=== PATIENT | male | born 1960 | race Caucasian/White ===

== ENCOUNTER 2021-04-04 00:07 | Emergency (ER) | payer SELFPAY ==
[~2021-04-04] VITALS: Ht 180.3 cm; Wt 117.2 kg
[~2021-04-04 00:07] MED LIST: ASPIR-LOW81 MG PO; ASPIRIN EC325 MG PO; BYSTOLIC20 MG PO; BYSTOLIC5 MG PO; LISINOPRIL10 MG PO; LISINOPRIL5 MG PO; NICORETTE2 MG MM; NORCO 7.5-3251 EACH PO; PANTOPRAZOLE SO40 MG PO; PRAVASTATIN SOD40 MG PO; PREVACID15 MG PO
--- NOTE | 2021-04-04 20:21 | EKG ---
[facility] [address] [facility] [place], [place] [address] Signed Normal sinus rhythm Normal ECG When compared with ECG of 05-JUN-2016 06:22, No significant change was found Confirmed by TESHA DOBSON DO ([id number]) on 04/04/2021 8:21:40 PM Electronically Signed By: TESHA DOBSON DO 04/04/212020 PATIENT NAME: DA BOLAÑOS Electrocardiogram DATE OF : 56 PHYSICIAN: TESHA DOBSON DO REPORT #: [id number] REPORT IS CONFIDENTIAL AND NOT TO BE RELEASED WITHOUT AUTHORIZATION
== END 2021-04-04 01:26 | disposition home or self-care (01) ==
LOC: ED 00:07
DX: J06.9 Acute upper respiratory infection, unspecified (principal); Z20.822 Contact with and (suspected) exposure to COVID-19; I10 Essential (primary) hypertension
CPT/HCPCS: 71045; 80053; 83735; 83880; 84484; 85025; 93005; 93010; 99285-25; C9803; U0003

== ENCOUNTER 2022-03-26 21:28 | Emergency (ER) | payer OTHER ==
[~2022-03-26] VITALS: Ht 180.3 cm; Wt 122.0 kg
[~2022-03-26 21:28] MED LIST changes: +LASIX20 MG PO; +POTASSIUM CHLO10 ME2 PO
--- OUTSIDE RECORDS SUMMARY | 2022-03-26 21:36 | XMS ---
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 [facility] VISIT COUNT (12 MO.) 3 [facility] TOTAL 3 NOTE: Visits indicate total known visits. ED/UCC VISIT TRACKING (12 MO.) 03/26/2022 21:29 [facility] TYPE: Emergency COMPLAINT: - LEG PAIN 03/20/2022 12:53 [facility] TYPE: Emergency COMPLAINT: - WATER RETENTION, SOB 04/04/2021 00:07 [facility] TYPE: Emergency COMPLAINT: - SOB DIAGNOSES: - Acute upper respiratory infection, unspecified - Shortness of breath - Essential (primary) hypertension INPATIENT VISIT TRACKING (12 MO.) 03/20/2022 12:54 [facility] TYPE: Observation COMPLAINT: - CHF, LIKELY ACUTE DIASTOLIC DIAGNOSES: - Atherosclerotic heart disease of [place] coronary artery without angina pectoris - Heart failure, unspecified - Contact with and (suspected) exposure to COVID-19 - Hypertensive heart disease with heart failure [email or web address]
== END 2022-03-27 02:50 | disposition home or self-care (01) ==
LOC: ED 21:28
DX: I71.019 Dissection of thoracic aorta, unspecified (principal); I11.0 Hypertensive heart disease with heart failure; I50.9 Heart failure, unspecified; Z79.899 Other long term (current) drug therapy
CPT/HCPCS: 36415; 75635; 80053; 85025; 85610; 99284-25; Q9967

== ENCOUNTER 2023-06-01 22:31 | Emergency (ER) | payer OTHER ==
[~2023-06-01] VITALS: Ht 180.3 cm; Wt 122.0 kg
[2023-06-01 23:08] LABS: BASOPHILS 1.2 % (0-2); EOSINOPHILS 4.6 % (0-6); HEMOGLOBIN 15.2 g/dL (12.0-18.0); LYMPHOCYTES 23.4 % (24-44); MCH 31.5 (27-36); MCHC 33.8 g/dl (30-36); MCV 93.2 fl (81-99); MONOCYTES 3.2 % (0-12); NEUTROPHILS 67.6 % (39-80); PLATELET COUNT 265 K/uL (140-440); RBC 4.82 M/ul (4.3-5.7); RDW 13.5 (10.5-15.0)
[2023-06-01 23:15] LABS: INR 1.02 (0.80-1.30); PROTIME 12.9 Sec (11.2-14.2)
[2023-06-01 23:27] LABS: ALBUMIN 3.7 g/dL (3.4-5.0); ALBUMIN/GLOBULIN RATIO 1.09 (1.1-2.4); ANION GAP 9.8 (7-21); BILIRUBIN, TOTAL 0.4 ng/dL (0.2-1.0); BUN/CREATININE RATIO 15.78 (6.0-28.6); CALCIUM 8.4 mg/dL (8.5-10.1); CREATININE, SERUM 1.33 mg/dL (0.70-1.30); POTASSIUM 3.8 mmol/L (3.5-5.1); PROTEIN, TOTAL 7.1 g/dL (6.4-8.2)
[2023-06-02 01:10] VITALS: BP 149/76
--- NOTE | 2023-06-02 12:43 | EKG ---
[facility] [address] [facility] [place] [address] Signed Normal sinus rhythm Nonspecific ST and T wave abnormality Prolonged QT Abnormal ECG When compared with ECG of 20-MAR-2022 13:13, Nonspecific T wave abnormality, worse in Anterolateral leads Confirmed by SUJATA BELL MD ([id number]) on 06/02/2023 12:43:17 PM Electronically Signed By: SUJATA BELL 06/02/23 1243 PATIENT NAME: MIKYDA Electrocardiogram DATE OF : 56 PHYSICIAN: SUJATA BELL REPORT #: [id number] REPORT IS CONFIDENTIAL AND NOT TO BE RELEASED WITHOUT AUTHORIZATION
== END 2023-06-02 01:10 | disposition home or self-care (01) ==
LOC: ED 22:31
PROVIDERS: Family Medicine
DX: M25.512 Pain in left shoulder (principal); I11.0 Hypertensive heart disease with heart failure; I50.9 Heart failure, unspecified; Z79.899 Other long term (current) drug therapy
CPT/HCPCS: 36415; 71275; 74174; 80053; 83880; 84484; 85025; 85610; 93005; 93010; 96375; 99284-25; A9270; J1885

== ENCOUNTER 2024-06-19 13:53 | Emergency (ER) | payer OTHER ==
[~2024-06-19] VITALS: Ht 180.3 cm; Wt 129.7 kg
[2024-06-19] MEDS ORDERED: SPIRONOLACTONE25 MG PO (15:47)
[2024-06-19] MEDS ORDERED: AMLODIPINE BESYL5 MG PO (15:47)
[2024-06-19 16:12] LABS: BASOPHILS 0.9 % (0-2); EOSINOPHILS 1.4 % (0-6); HEMATOCRIT 40.5 % (35.0-50.0); HEMOGLOBIN 13.8 g/dL (12.0-18.0); LYMPHOCYTES 28.3 % (24-44); MCHC 34.1 g/dl (30-36); MCV 90.7 fl (81-99); NEUTROPHILS 60.4 % (39-80); PLATELET COUNT 340 K/uL (140-440); RBC 4.46 M/ul (4.3-5.7); RDW 13.9 (10.5-15.0)
[2024-06-19 16:50] LABS: ALBUMIN 3.4 g/dL (3.4-5.0); ALBUMIN/GLOBULIN RATIO 0.92 (1.1-2.4); ANION GAP 14.3 (7-21); BILIRUBIN, TOTAL 0.4 ng/dL (0.2-1.0); BUN/CREATININE RATIO 19.2 (6.0-28.6); CALCIUM 8.5 mg/dL (8.5-10.1); CREATININE, SERUM 1.25 mg/dL (0.70-1.30); POTASSIUM 4.3 mmol/L (3.5-5.1); PROTEIN, TOTAL 7.1 g/dL (6.4-8.2)
[2024-06-19] MEDS ORDERED: LASIX40 MG PO (17:12)
[2024-06-19] MEDS ORDERED: FUROSEMIDE 40 MG/4 ML VIAL IV ONE (17:15)
[2024-06-19 17:52] VITALS: BP 155/64
--- NOTE | 2024-06-20 12:04 | EKG ---
[facility] [address] [facility] [place] [address] Signed Sinus rhythm with premature atrial complexes Nonspecific ST abnormality Abnormal ECG When compared with ECG of 01-JUN-2023 22:57, premature atrial complexes are now present Nonspecific T wave abnormality no longer evident in Anterolateral leads Confirmed by Marcellus Bell MD ([id number]) on 06/20/2024 12:04:48 PM Electronically Signed By: MARCELLUS BELL 06/20/24 1204 PATIENT NAME: MIKYDA ELIE Electrocardiogram DATE OF : 56 PHYSICIAN: MARCELLUS BELL REPORT #: [id number] REPORT IS CONFIDENTIAL AND NOT TO BE RELEASED WITHOUT AUTHORIZATION
== END 2024-06-19 17:47 | disposition home or self-care (01) ==
LOC: ED 13:53
PROVIDERS: Emergency Medicine
DX: I11.0 Hypertensive heart disease with heart failure (principal); I50.9 Heart failure, unspecified; Z79.899 Other long term (current) drug therapy; Z98.890 Other specified postprocedural states
CPT/HCPCS: 36415; 71045; 80053; 83735; 83880; 84484; 85025; 93005; 93010; 96374; 99285-25; J1940